=== PATIENT | female | born 1965 | race Caucasian/White ===

== ENCOUNTER 2023-07-23 17:42 | Emergency (ER) | payer OTHER ==
[2023-07-23] MEDS ORDERED: Doxycycline 100 MG CAP ONE (18:17)
[2023-07-23] MEDS ORDERED: metroNIDAZOLE 250 MG TAB ONE (18:17)
[2023-07-23] MEDS ORDERED: Boostrix 0.5 ML (Tdap) VIAL (>/=7 yrs of age) ONE (18:18)
== END 2023-07-23 18:28 | disposition home or self-care (01) ==
LOC: MADERS 17:42
DX: S61.451A Open bite of right hand, initial encounter (principal); S61.452A Open bite of left hand, initial encounter; K21.9 Gastro-esophageal reflux disease without esophagitis; I10 Essential (primary) hypertension; Z23 Encounter for immunization; Z79.899 Other long term (current) drug therapy; W55.01XA Bitten by cat, initial encounter
CPT/HCPCS: 90471; 90715